=== PATIENT | male | born 1980 | race Caucasian/White ===

== ENCOUNTER 2019-08-13 21:11 | Emergency (ER) | payer OTHER ==
[~2019-08-13] VITALS: Ht 190.5 cm; Wt 77.1 kg
[~2019-08-13 21:11] MED LIST: APAP500 PO; ASPIRIN EC325 M1 PO; BENTYL 20 MG TA20 M1 PO; CELEBREX 200 M200 MG PO; NAPROSYN375 MG PO; NAUZENE TABLET1 EACH PO; PANTOPRAZOLE SO40 M1 PO; ZANTAC 150MG T150 MG PO; ZOFRAN4 MG PO
[2019-08-13] MEDS ORDERED: SUDAFED 12 HOU120 MG PO (21:25)
[2019-08-13 21:48] LABS: HEMATOCRIT 43.8 % (42.0-52.0); HEMOGLOBIN 15.2 gm/dL (14.0-18.0); MCH 30.6 pg (26.0-34.0); MCHC 34.6 g/dL (28.0-37.0); MCV 88.4 fL (80.0-100.0); MPV 7.2 fl. (7.2-11.1); RBC 4.96 mil/uL (4.50-6.00); WBC 5.1 thou/uL (4.0-11.0)
[2019-08-13 22:19] VITALS: BP 115/67
== END 2019-08-13 22:20 | disposition home or self-care (01) ==
LOC: M.ERS 21:11
PROVIDERS: Emergency Medicine Emergency Medical Services
DX: R04.0 Epistaxis (principal); J45.909 Unspecified asthma, uncomplicated; G43.909 Migraine, unspecified, not intractable, without status migrainosus